=== PATIENT | female | born 1990 | race Caucasian/White ===

== ENCOUNTER 2016-05-08 17:18 | Emergency (ER) | payer OTHER ==
--- NOTE | 2016-05-08 17:32 | ED NURSING NOTES ---
Clinical Report - Nurses [facility] [address] [place] [address] 05/08/2016 17:19 Patient: TAVIA WEIR TRIAGE Triage time 1726 PM. Acuity: LEVEL 5. Chief Complaint: LEFT LOWER TOOTHACHE. Alert. No acute distress. --17:31 Satinder Coy R.N. 17:26 05/08/16. BP: 134/82. HR: 89. RR: 16. O2 saturation: 100%. Temp: 97.9 F. Pain level now: 01/14. --17:31 Satinder Coy R.N. Weight: 54.4 kg stated. Height/Length: 68 inches Per Patient. BMI: 18.2. --17:30 Satinder Coy R.N. Medications None. --17:30 Satinder Coy R.N. Allergies Clindamycin. --17:30 Satinder Coy R.N. History Arrived by private vehicle. Historian: patient. Accompanied by family. Onset. (about 1 week). ( Patient presents to the ED with symptoms of left lower dental pain and difficulty swallowing x1 week. Patient states that she tried to get seen at the walk in clinic, but the clinic wouldn't take her insurance.). She has no dental appointment scheduled. 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 PAST MEDICAL HX: Immunizations: up-to-date. SOCIAL HX: Current every day light tobacco smoker (cigarette)- less than 1/2 a pack per day. Occasional alcohol use. History of drug use: marijuana. FALL RISK ASSESSMENT: Fall risk assessment completed. No fall risk identified. NUTRITIONAL RISK ASSESSMENT: The nutritional risk assessment revealed no deficiencies. FUNCTIONAL ASSESSMENT: Functional assessment: no impairments noted. LEARNING NEEDS ASSESSMENT: The learning needs assessment revealed no barriers. SKIN INTEGRITY ASSESSMENT: Skin integrity risk assessment completed. No skin integrity risk identified. --17:31 Satinder Coy R.N. PROBLEMS: Dehydration. Abdominal Pain. Fever. UTI - Urinary Tract Infection. Depression. Vomiting. Influenza. Abscess. Tetanus Status. Immunizations. LNMP - Last Normal Menstrual Period. Asthma. --17:30 Satinder Coy R.N. Gastroenteritis [RuleOut]. --17:30 Satinder Coy R.N. ADDITIONAL SURGERIES: . --17:30 Satinder Coy R.N. Interventions ID band on patient. To treatment room. --17:31 Satinder Coy R.N. PHYSICAL ASSESSMENT Ambulatory to room. GENERAL / NEURO / PSYCH: Alert. Oriented X 4. Appears in no acute distress. HEENT: Pupils equal, round and reactive to light. Pharynx within normal limits. Voice within normal limits. Severe dental tenderness of a single tooth (left lower molar). Mucous membranes are pink. RESPIRATORY: Respirations not labored. CVS: Capillary refill less than 2 seconds. SKIN: Skin is warm and dry. Normal skin turgor. --17:31 Satinder Coy R.N. NURSING PROGRESS NOTES Reassurance given. Call light placed in reach. Side rails up x 1. Bed placed in lowest position. Brakes of bed on. --17:31 Satinder Coy R.N. DISPOSITION / DISCHARGE Condition at departure: improved. The goals identified in the patient's plan of care were met. Discharge instructions provided and reviewed with the patient. Reviewed medication(s) side effects, precautions, dosing and course information. Prescription(s) given to the patient. Treatments reviewed (warm salt water swish). Patient verbalized understanding. Written instructions provided in Armenian. The patient was discharged home and accompanied by barge engineer. She left the Emergency Department ambulatory and via private vehicle. Interface Engineer driving. FALL RISK ASSESSMENT: Fall risk assessment completed. No fall risk identified. --17:37 Satinder Coy R.N. Departure time: 1737 PM. --17:37 Satinder Coy R.N. Locked/Released at 05/08/2016 17:37 by Satinder Coy R.N.
--- NOTE | 2016-05-08 17:32 | ED CLINICAL REPORT ---
Clinical Report - Physicians/Mid Levels [facility] [address] [place] [address] 05/08/2016 17:19 Patient: TAVIA WEIR Time Seen: 1730 May 08 2016. Arrived- By private vehicle. Historian- patient. HISTORY OF PRESENT ILLNESS Chief Complaint: DENTAL PAIN. 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 Pain described as mild. No mouth sores or nasal discharge. (Pt in the er with dental pain the last few days, worsening. Denies any history of any trauma. Reports similar pain to the right side, had to have the tooth extracted. Where she has her wisdom teeth, on the left side, more likely has no room for them.). REVIEW OF SYSTEMS No difficulty breathing, abdominal pain or difficulty with urination. All systems otherwise negative, except as recorded above. PAST HISTORY Problems: Dehydration. Abdominal Pain. Fever. UTI - Urinary Tract Infection. Depression. Vomiting. Influenza. Abscess. Tetanus Status. Immunizations. LNMP - Last Normal Menstrual Period. Asthma. Gastroenteritis [RuleOut]. Additional Surgeries: . Medications: None. Allergies: Clindamycin. SOCIAL HISTORY Smoker- current status unknown. Alcohol use. History of drug use: marijuana. ADDITIONAL NOTES The nursing notes have been reviewed. PHYSICAL EXAM Vital Signs: 05/08/2016 17:26 BP: 134/82. HR: 89. RR: 16. O2 saturation: 100%. Temp: 97.9 F. Pain level now: 10/10. Appearance: Alert. No acute distress. ENT: Dental tenderness. Pharynx normal. Lips normal. Gums normal. Uvula midline. No tonsillar exudate or dental decay. (left lower tooth / molar into gum, with mild surrounding erythema). Neck: Trachea midline. No adenopathy. CVS: Normal heart rate and rhythm. Heart sounds normal. Respiratory: No respiratory distress. Breath sounds normal. Abdomen: Soft. No organomegaly. Skin: Normal skin color. PROGRESS AND PROCEDURES Course of Care: Uvula midline, no trismus. No signs of apical abscess, for incision and drainage, patient offered dental block, however declined. Patient is stable. Patient/family counseled. Disposition: Discharged. CLINICAL IMPRESSION Moderate dental pain. INSTRUCTIONS Drink plenty of fluids. Prescription Medications: Hydrocodone/APAP 5mg / 325mg: take 1 orally every 6 hours as needed for pain. Dispense twelve (12). No refill. Amoxicillin 500 mg tablets: Take 1 orally every 8 hours for 10 days. Dispense thirty (30). No refills. Follow-up: Follow up with your doctor in three days. (Electronically signed by Cherelle Morton P.A.-C 05/08/2016 17:39)
--- NOTE | 2016-05-08 17:32 | ED CLINICAL REPORT ---
Clinical Report - Physicians/Mid Levels [facility] [address] [place] [address] 05/08/2016 17:19 Patient: TAVIA WEIR Time Seen: 1730 May 08 2016. Arrived- By private vehicle. Historian- patient. HISTORY OF PRESENT ILLNESS Chief Complaint: DENTAL PAIN. 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 Pain described as mild. No mouth sores or nasal discharge. (Pt in the er with dental pain the last few days, worsening. Denies any history of any trauma. Reports similar pain to the right side, had to have the tooth extracted. Where she has her wisdom teeth, on the left side, more likely has no room for them.). REVIEW OF SYSTEMS No difficulty breathing, abdominal pain or difficulty with urination. All systems otherwise negative, except as recorded above. PAST HISTORY Problems: Dehydration. Abdominal Pain. Fever. UTI - Urinary Tract Infection. Depression. Vomiting. Influenza. Abscess. Tetanus Status. Immunizations. LNMP - Last Normal Menstrual Period. Asthma. Gastroenteritis [RuleOut]. Additional Surgeries: . Medications: None. Allergies: Clindamycin. SOCIAL HISTORY Smoker- current status unknown. Alcohol use. History of drug use: marijuana. ADDITIONAL NOTES The nursing notes have been reviewed. PHYSICAL EXAM Vital Signs: 05/08/2016 17:26 BP: 134/82. HR: 89. RR: 16. O2 saturation: 100%. Temp: 97.9 F. Pain level now: 10/10. Appearance: Alert. No acute distress. ENT: Dental tenderness. Pharynx normal. Lips normal. Gums normal. Uvula midline. No tonsillar exudate or dental decay. (left lower tooth / molar into gum, with mild surrounding erythema). Neck: Trachea midline. No adenopathy. CVS: Normal heart rate and rhythm. Heart sounds normal. Respiratory: No respiratory distress. Breath sounds normal. Abdomen: Soft. No organomegaly. Skin: Normal skin color. PROGRESS AND PROCEDURES Course of Care: Uvula midline, no trismus. No signs of apical abscess, for incision and drainage, patient offered dental block, however declined. Patient is stable. Patient/family counseled. Disposition: Discharged. CLINICAL IMPRESSION Moderate dental pain. INSTRUCTIONS Drink plenty of fluids. Prescription Medications: Hydrocodone/APAP 5mg / 325mg: take 1 orally every 6 hours as needed for pain. Dispense twelve (12). No refill. Amoxicillin 500 mg tablets: Take 1 orally every 8 hours for 10 days. Dispense thirty (30). No refills. Follow-up: Follow up with your doctor in three days. (Electronically signed by Cherelle Morton P.A.-C 05/08/2016 17:39)
--- NOTE | 2016-05-08 17:32 | ED NURSING NOTES ---
Clinical Report - Nurses [facility] [address] [place] [address] 05/08/2016 17:19 Patient: TAVIA WEIR TRIAGE Triage time 1726 PM. Acuity: LEVEL 5. Chief Complaint: LEFT LOWER TOOTHACHE. Alert. No acute distress. --17:31 Satinder Coy R.N. 17:26 05/08/16. BP: 134/82. HR: 89. RR: 16. O2 saturation: 100%. Temp: 97.9 F. Pain level now: 01/14. --17:31 Satinder Coy R.N. Weight: 54.4 kg stated. Height/Length: 68 inches Per Patient. BMI: 18.2. --17:30 Satinder Coy R.N. Medications None. --17:30 Satinder Coy R.N. Allergies Clindamycin. --17:30 Satinder Coy R.N. History Arrived by private vehicle. Historian: patient. Accompanied by family. Onset. (about 1 week). ( Patient presents to the ED with symptoms of left lower dental pain and difficulty swallowing x1 week. Patient states that she tried to get seen at the walk in clinic, but the clinic wouldn't take her insurance.). She has no dental appointment scheduled. 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 PAST MEDICAL HX: Immunizations: up-to-date. SOCIAL HX: Current every day light tobacco smoker (cigarette)- less than 1/2 a pack per day. Occasional alcohol use. History of drug use: marijuana. FALL RISK ASSESSMENT: Fall risk assessment completed. No fall risk identified. NUTRITIONAL RISK ASSESSMENT: The nutritional risk assessment revealed no deficiencies. FUNCTIONAL ASSESSMENT: Functional assessment: no impairments noted. LEARNING NEEDS ASSESSMENT: The learning needs assessment revealed no barriers. SKIN INTEGRITY ASSESSMENT: Skin integrity risk assessment completed. No skin integrity risk identified. --17:31 Satinder Coy R.N. PROBLEMS: Dehydration. Abdominal Pain. Fever. UTI - Urinary Tract Infection. Depression. Vomiting. Influenza. Abscess. Tetanus Status. Immunizations. LNMP - Last Normal Menstrual Period. Asthma. --17:30 Satinder Coy R.N. Gastroenteritis [RuleOut]. --17:30 Satinder Coy R.N. ADDITIONAL SURGERIES: . --17:30 Satinder Coy R.N. Interventions ID band on patient. To treatment room. --17:31 Satinder Coy R.N. PHYSICAL ASSESSMENT Ambulatory to room. GENERAL / NEURO / PSYCH: Alert. Oriented X 4. Appears in no acute distress. HEENT: Pupils equal, round and reactive to light. Pharynx within normal limits. Voice within normal limits. Severe dental tenderness of a single tooth (left lower molar). Mucous membranes are pink. RESPIRATORY: Respirations not labored. CVS: Capillary refill less than 2 seconds. SKIN: Skin is warm and dry. Normal skin turgor. --17:31 Satinder Coy R.N. NURSING PROGRESS NOTES Reassurance given. Call light placed in reach. Side rails up x 1. Bed placed in lowest position. Brakes of bed on. --17:31 Satinder Coy R.N. DISPOSITION / DISCHARGE Condition at departure: improved. The goals identified in the patient's plan of care were met. Discharge instructions provided and reviewed with the patient. Reviewed medication(s) side effects, precautions, dosing and course information. Prescription(s) given to the patient. Treatments reviewed (warm salt water swish). Patient verbalized understanding. Written instructions provided in French. The patient was discharged home and accompanied by power transformer repair supervisor. She left the Emergency Department ambulatory and via private vehicle. Flag Signalman driving. FALL RISK ASSESSMENT: Fall risk assessment completed. No fall risk identified. --17:37 Satinder Coy R.N. Departure time: 1737 PM. --17:37 Satinder Coy R.N. Locked/Released at 05/08/2016 17:37 by Satinder Coy R.N.
--- NOTE | 2016-05-08 17:39 | ED DISCHARGE INSTRUCTIONS ---
Patient: TAVIA WEIR General Instructions [facility] VisitID: [id number] [place] [address] 25y, F Registration Date/Time: 05/08/2016 Moderate dental pain. INSTRUCTIONS Drink plenty of fluids. Prescription Medications: Hydrocodone/APAP 5mg / 325mg: take 1 orally every 6 hours as needed for pain. Dispense twelve (12). No refill. Amoxicillin 500 mg tablets: Take 1 orally every 8 hours for 10 days. Dispense thirty (30). No refills. Follow-up: Follow up with your doctor in three days. ADDITIONAL INFORMATION Dental Pain A crack or cavity in the tooth, which exposes the sensitive inner area of the tooth can cause tooth pain. An infection in the gum or the root of the tooth can cause pain and swelling. The pain is often made worse by drinking hot or cold fluids, or biting on hard foods. Pain may spread from the tooth to the ear or jaw on the same side. Home Care: Avoid hot and cold foods and liquids since your tooth may be sensitive to temperature changes. If your tooth is chipped or cracked, or if there is a large open cavity, apply OIL OF CLOVES (available [id number]-mandgnw in drug stores) directly to the tooth to reduce pain. Some pharmacies carry an [id number]-icvywmp "toothache kit." This contains a paste, which can be applied over the exposed tooth to decrease sensitivity. A cold pack on your jaw over the sore area may help reduce pain. You may use acetaminophen (Tylenol) or ibuprofen (Motrin, Advil) to control pain, unless another medicine was prescribed. [ NOTE: If you have chronic liver or kidney disease or ever had a stomach ulcer or GI bleeding, talk with your doctor before using these medicines.] If you have signs of an infection, an antibiotic will be given. Take it as directed. Follow-Up as directed with a dentist. Your pain may go away with the treatment given. However, only a dentist can fully evaluate and treat the cause and prevent the pain from coming back again. TOOTHACHE IS A SIGN OF DISEASE IN YOUR TOOTH AND SHOULD BE EXAMINED AND TREATED BY A DENTIST. Get Prompt Medical Attention if any of the following occur: Your face becomes swollen or red Pain worsens or spreads to the neck Fever over 100.4 F (38.0 C) Unusual drowsiness; headache or stiff neck; weakness or fainting Pus drains from the tooth Difficulty swallowing or breathing Hydrocodone Bitartrate, Acetaminophen Oral tablet What is this medicine? ACETAMINOPHEN; HYDROCODONE (a set a OLEKSANDR kendell fen; ciara droe KOE done) is a pain reliever. It is used to treat mild to moderate pain. How should I use this medicine? Take this medicine by mouth. Swallow it with a full glass of water. Follow the directions on the prescription label. If the medicine upsets your stomach, take the medicine with food or milk. Do not take more than you are told to take. Talk to your raw stock dyeing machine tender regarding the use of this medicine in children. This medicine is not approved for use in children. What side effects may I notice from receiving this medicine? Side effects that you should report to your doctor or health healthcare administration internship as soon as possible: allergic reactions like skin rash, itching or hives, swelling of the face, lips, or tongue breathing problems confusion feeling faint or lightheaded, falls stomach pain yellowing of the eyes or skin Side effects that usually do not require medical attention (report to your doctor or health healthcare administration internship if they continue or are bothersome): nausea, vomiting stomach upset What may interact with this medicine? alcohol antihistamines isoniazid medicines for depression, anxiety, or psychotic disturbances medicines for sleep muscle relaxants naltrexone narcotic medicines (opiates) for pain phenobarbital ritonavir tramadol What if I miss a dose? If you miss a dose, take it as soon as you can. If it is almost time for your next dose, take only that dose. Do not take double or extra doses. Where should I keep my medicine? Keep out of the reach of children. This medicine can be abused. Keep your medicine in a safe place to protect it from theft. Do not share this medicine with anyone. Selling or giving away this medicine is dangerous and against the law. Store at room temperature between 15 and 30 degrees C (59 and 86 degrees F). Protect from light. Keep container tightly closed. Throw away any unused medicine after the expiration date. Discard unused medicine and used packaging carefully. Pets and children can be harmed if they find used or lost packages. What should I tell my health care provider before I take this medicine? They need to know if you have any of these conditions: brain tumor Crohn's disease, inflammatory bowel disease, or ulcerative colitis drink more than 3 alcohol-containing drinks per day drug abuse or addiction head injury heart or circulation problems kidney disease or problems going to the bathroom liver disease lung disease, asthma, or breathing problems an unusual or allergic reaction to acetaminophen, hydrocodone, other opioid analgesics, other medicines, foods, dyes, or preservatives or trying to get breast-feeding What should I watch for while using this medicine? Tell your doctor or health healthcare administration internship if your pain does not go away, if it gets worse, or if you have new or a different type of pain. You may develop tolerance to the medicine. Tolerance means that you will need a higher dose of the medicine for pain relief. Tolerance is normal and is expected if you take the medicine for a long time. Do not suddenly stop taking your medicine because you may develop a severe reaction. Your body becomes used to the medicine. This does NOT mean you are addicted. Addiction is a behavior related to getting and using a drug for a non-medical reason. If you have pain, you have a medical reason to take pain medicine. Your doctor will tell you how much medicine to take. If your doctor wants you to stop the medicine, the dose will be slowly lowered over time to avoid any side effects. You may get drowsy or dizzy when you first start taking the medicine or change doses. Do not drive, use machinery, or do anything that may be dangerous until you know how the medicine affects you. Stand or sit up slowly. There are different types of narcotic medicines (opiates) for pain. If you take more than one type at the same time, you may have more side effects. Give your health care provider a list of all medicines you use. Your doctor will tell you how much medicine to take. Do not take more medicine than directed. Call emergency for help if you have problems breathing. The medicine will cause constipation. Try to have a bowel movement at least every 2 to 3 days. If you do not have a bowel movement for 3 days, call your doctor or health healthcare administration internship. Too much acetaminophen can be very dangerous. Do not take Tylenol (acetaminophen) or medicines that contain acetaminophen with this medicine. Many non-prescription medicines contain acetaminophen. Always read the labels carefully. You have been given the following additional information: Dental Pain Hydrocodone Bitartrate, Acetaminophen Oral tablet (Electronically signed by Cherelle Morton P.A.-C 05/08/2016 17:39)
--- NOTE | 2016-05-08 17:39 | ED MED RECONCILIATION SUMMARY ---
Patient: TAVIA WEIR Medication Reconciliation Report [facility] VisitID: [id number] [address] [place] [address] 25y, F Registration Date/Time: 05/08/2016 Weight: 54.4 kg Height/Length: 68 in. BMI: 18.2 ALLERGIES: Clindamycin The patient's Home Medications are listed below: NONE. The source(s) of the original Home Medication information: Not obtained. The following Medications were given to the patient in the Emergency Department: None. The following Medications were prescribed to the patient: Hydrocodone/APAP 5mg / 325mg: take 1 orally every 6 hours as needed for pain. Dispense twelve (12). No refill. -- Cherelle Morton, P.A.-Pepe Amoxicillin 500 mg tablets: Take 1 orally every 8 hours for 10 days. Dispense thirty (30). No refills. -- Cherelle Morton, P.A.-C
--- NOTE | 2016-05-08 17:39 | ED MED RECONCILIATION SUMMARY ---
Patient: TAVIA WEIR Medication Reconciliation Report [facility] VisitID: [id number] [address] [place] [address] 25y, F Registration Date/Time: 05/08/2016 Weight: 54.4 kg Height/Length: 68 in. BMI: 18.2 ALLERGIES: Clindamycin The patient's Home Medications are listed below: NONE. The source(s) of the original Home Medication information: Not obtained. The following Medications were given to the patient in the Emergency Department: None. The following Medications were prescribed to the patient: Hydrocodone/APAP 5mg / 325mg: take 1 orally every 6 hours as needed for pain. Dispense twelve (12). No refill. -- Cherelle Morton, P.A.-Pepe Amoxicillin 500 mg tablets: Take 1 orally every 8 hours for 10 days. Dispense thirty (30). No refills. -- Cherelle Morton, P.A.-C
--- NOTE | 2016-05-08 17:39 | ED MAR SUMMARY ---
..... Medication Administration Record [facility] [address] [place], [place] [id number] Patient: CARMELLA TAVIA E Visit ID: [id number] 25y, F Weight: 54.4 kg Height/Length: 68 in BMI: 18.2 ALLERGIES: Clindamycin
--- NOTE | 2016-05-08 17:39 | ED DISCHARGE INSTRUCTIONS ---
Patient: TAVIA WEIR General Instructions [facility] VisitID: [id number] [place] [address] 25y, F Registration Date/Time: 05/08/2016 Moderate dental pain. INSTRUCTIONS Drink plenty of fluids. Prescription Medications: Hydrocodone/APAP 5mg / 325mg: take 1 orally every 6 hours as needed for pain. Dispense twelve (12). No refill. Amoxicillin 500 mg tablets: Take 1 orally every 8 hours for 10 days. Dispense thirty (30). No refills. Follow-up: Follow up with your doctor in three days. ADDITIONAL INFORMATION Dental Pain A crack or cavity in the tooth, which exposes the sensitive inner area of the tooth can cause tooth pain. An infection in the gum or the root of the tooth can cause pain and swelling. The pain is often made worse by drinking hot or cold fluids, or biting on hard foods. Pain may spread from the tooth to the ear or jaw on the same side. Home Care: Avoid hot and cold foods and liquids since your tooth may be sensitive to temperature changes. If your tooth is chipped or cracked, or if there is a large open cavity, apply OIL OF CLOVES (available ygws-cfw-zbxrfal in drug stores) directly to the tooth to reduce pain. Some pharmacies carry an riqg-qor-ztxbwap "toothache kit." This contains a paste, which can be applied over the exposed tooth to decrease sensitivity. A cold pack on your jaw over the sore area may help reduce pain. You may use acetaminophen (Tylenol) or ibuprofen (Motrin, Advil) to control pain, unless another medicine was prescribed. [ NOTE: If you have chronic liver or kidney disease or ever had a stomach ulcer or GI bleeding, talk with your doctor before using these medicines.] If you have signs of an infection, an antibiotic will be given. Take it as directed. Follow-Up as directed with a dentist. Your pain may go away with the treatment given. However, only a dentist can fully evaluate and treat the cause and prevent the pain from coming back again. TOOTHACHE IS A SIGN OF DISEASE IN YOUR TOOTH AND SHOULD BE EXAMINED AND TREATED BY A DENTIST. Get Prompt Medical Attention if any of the following occur: Your face becomes swollen or red Pain worsens or spreads to the neck Fever over 100.4 F (38.0 C) Unusual drowsiness; headache or stiff neck; weakness or fainting Pus drains from the tooth Difficulty swallowing or breathing Hydrocodone Bitartrate, Acetaminophen Oral tablet What is this medicine? ACETAMINOPHEN; HYDROCODONE (a set a OLEKSANDR kendell fen; ciara droe KOE done) is a pain reliever. It is used to treat mild to moderate pain. How should I use this medicine? Take this medicine by mouth. Swallow it with a full glass of water. Follow the directions on the prescription label. If the medicine upsets your stomach, take the medicine with food or milk. Do not take more than you are told to take. Talk to your centerless grinding machine adjuster regarding the use of this medicine in children. This medicine is not approved for use in children. What side effects may I notice from receiving this medicine? Side effects that you should report to your doctor or health home visit field care manager as soon as possible: allergic reactions like skin rash, itching or hives, swelling of the face, lips, or tongue breathing problems confusion feeling faint or lightheaded, falls stomach pain yellowing of the eyes or skin Side effects that usually do not require medical attention (report to your doctor or health home visit field care manager if they continue or are bothersome): nausea, vomiting stomach upset What may interact with this medicine? alcohol antihistamines isoniazid medicines for depression, anxiety, or psychotic disturbances medicines for sleep muscle relaxants naltrexone narcotic medicines (opiates) for pain phenobarbital ritonavir tramadol What if I miss a dose? If you miss a dose, take it as soon as you can. If it is almost time for your next dose, take only that dose. Do not take double or extra doses. Where should I keep my medicine? Keep out of the reach of children. This medicine can be abused. Keep your medicine in a safe place to protect it from theft. Do not share this medicine with anyone. Selling or giving away this medicine is dangerous and against the law. Store at room temperature between 15 and 30 degrees C (59 and 86 degrees F). Protect from light. Keep container tightly closed. Throw away any unused medicine after the expiration date. Discard unused medicine and used packaging carefully. Pets and children can be harmed if they find used or lost packages. What should I tell my health care provider before I take this medicine? They need to know if you have any of these conditions: brain tumor Crohn's disease, inflammatory bowel disease, or ulcerative colitis drink more than 3 alcohol-containing drinks per day drug abuse or addiction head injury heart or circulation problems kidney disease or problems going to the bathroom liver disease lung disease, asthma, or breathing problems an unusual or allergic reaction to acetaminophen, hydrocodone, other opioid analgesics, other medicines, foods, dyes, or preservatives or trying to get breast-feeding What should I watch for while using this medicine? Tell your doctor or health home visit field care manager if your pain does not go away, if it gets worse, or if you have new or a different type of pain. You may develop tolerance to the medicine. Tolerance means that you will need a higher dose of the medicine for pain relief. Tolerance is normal and is expected if you take the medicine for a long time. Do not suddenly stop taking your medicine because you may develop a severe reaction. Your body becomes used to the medicine. This does NOT mean you are addicted. Addiction is a behavior related to getting and using a drug for a non-medical reason. If you have pain, you have a medical reason to take pain medicine. Your doctor will tell you how much medicine to take. If your doctor wants you to stop the medicine, the dose will be slowly lowered over time to avoid any side effects. You may get drowsy or dizzy when you first start taking the medicine or change doses. Do not drive, use machinery, or do anything that may be dangerous until you know how the medicine affects you. Stand or sit up slowly. There are different types of narcotic medicines (opiates) for pain. If you take more than one type at the same time, you may have more side effects. Give your health care provider a list of all medicines you use. Your doctor will tell you how much medicine to take. Do not take more medicine than directed. Call emergency for help if you have problems breathing. The medicine will cause constipation. Try to have a bowel movement at least every 2 to 3 days. If you do not have a bowel movement for 3 days, call your doctor or health home visit field care manager. Too much acetaminophen can be very dangerous. Do not take Tylenol (acetaminophen) or medicines that contain acetaminophen with this medicine. Many non-prescription medicines contain acetaminophen. Always read the labels carefully. You have been given the following additional information: Dental Pain Hydrocodone Bitartrate, Acetaminophen Oral tablet (Electronically signed by Cherelle Morton P.A.-C 05/08/2016 17:39)
--- NOTE | 2016-05-08 17:39 | ED MAR SUMMARY ---
..... Medication Administration Record [facility] [address] [place], [place] [id number] Patient: CARMELLA TAVIA E Visit ID: [id number] 25y, F Weight: 54.4 kg Height/Length: 68 in BMI: 18.2 ALLERGIES: Clindamycin
== END 2016-05-08 17:38 | disposition home or self-care (01) ==
LOC: ED SRH 17:18
DX: K08.89 Other specified disorders of teeth and supporting structures (principal); F17.210 Nicotine dependence, cigarettes, uncomplicated